=== PATIENT | male | born 1980 | race Caucasian/White ===

== ENCOUNTER 2016-09-12 11:28 | Emergency (ER) | payer BC ==
[2016-09-12 11:36] VITALS: BP 139/78
[2016-09-12] MEDS ORDERED: Take Home: Hydrocortisone/Neomycin/Polymyxin B Otic Susp 10 ML, 1 Btle Pac EARLF ONE (11:53)
--- NOTE | 2016-09-12 11:53 | EDM.PDOC ---
ED HPI GENERAL MEDICAL PROBLEM - General Chief Complaint: ENT Problem Stated Complaint: EAR DRAINAGE Time Seen by Provider: 09/12/16 11:30 Source of Information: Reports: Patient, RN, RN Notes Reviewed History Limitations: Reports: No Limitations - History of Present Illness INITIAL COMMENTS - FREE TEXT/NARRATIVE: Patient presents the emergency room at [facility] complaining of left-sided ear pain that started about a month ago. The patient states over the past week or so he has noticed a yellow purulent drainage from the left ear. The patient states the ear pain has progressively gotten worse. The patient states that he' s had mastoiditis in the past and has had surgery for this. The patient also states he had multiple tubes in the past as well. The patient states that he can smell a foul smell from the left ear. The patient states that the drainage has been continuous. Onset: Gradual Left Ear Pain Score (Numeric/FACES): 5 - Related Data Allergies Allergy/AdvReac Type Severity Reaction Status Date / Time seasonal Allergy Itching Uncoded 04/23/16 13:27 Home Meds: Home Meds Sertraline HCl [Sertraline HCl] 50 mg PO DAILY 04/23/16 [History] Amoxicillin/Potassium Clav [Amox Tr-K Clv 875-125 mg Tab] 1 each PO BID #18 tablet 09/12/16 [Rx] Past Medical History - Past Health History Medical/Surgical History: Denies Medical/Surgical History Psychiatric History: Reports: Depression - Past Surgical History Other HEENT Surgeries/Procedures: rhinoscopy mastoidectomy Social & Family History - Tobacco Use Smoking Status *Q: Unknown Ever Smoked Packs/Tins Daily: 1 Second Hand Smoke Exposure: No - Alcohol Use Days Per Week of Alcohol Use: 1 Number of Drinks Per Day: 6 Total Drinks Per Week: 6 - Recreational Drug Use Recreational Drug Use: Yes Drug Use in Last 12 Months: No Recreational Drug Type: Reports: Cocaine, Methamphetamine ED ROS ENT - Review of Systems Review Of Systems: See Below Constitutional: Denies: Fever, Chills HEENT: Reports: Ear Discharge, Ear Pain Respiratory: Denies: Shortness of Breath, Cough Cardiovascular: Denies: Chest Pain, Palpitations Skin: Reports: No Symptoms Neurological: Reports: No Symptoms ED EXAM, ENT - Physical Exam Exam: See Below Exam Limited By: No Limitations General Appearance: Alert, No Apparent Distress Ears: Canal Blood, Canal Discharge, Canal Material, TM Bulging, TM Perforation Nose: Normal Inspection, Normal Mucousa, No Blood Mouth/Throat: Normal Inspection, Normal Oropharynx, Normal Teeth Head: Atraumatic, Normocephalic Neck: Supple Respiratory/Chest: No Respiratory Distress, Lungs Clear, Normal Breath Sounds Cardiovascular: Regular Rate, Rhythm Neurological: Alert, Oriented Skin: Warm, Dry, Intact, Normal Color, No Rash Course - Vital Signs Last Recorded V/S: Last Vital Signs Temp 36.3 C 09/12/16 11:35 Pulse 79 09/12/16 11:35 Resp 16 09/12/16 11:35 BP 139/78 09/12/16 11:35 Pulse Ox 96 09/12/16 11:35 - Orders/Labs/Meds Orders: Active Orders 24 hr Category Date Time Status Amoxicillin/Clavulanate K [Take Home: Amox/Clavulanate Med 09/12/16 11:54 Once 875-12, 2 Tab Pac] 1 packet PO ONETIME ONE Meds: Medications Discontinued Medications Generic Name Dose Route Start Last Admin Trade Name Freq PRN Reason Stop Dose Admin Neomycin/Polymyxin/Hydrocortisone 1 packet 09/12/16 11:53 Take Home: Hydrocort/Neomycin/Polymy B, 1 Btl EARLF 09/12/16 11:54 ONETIME ONE Departure - Departure Time of Disposition: 11:51 Disposition: Home, Self-Care 01 Condition: good Clinical Impression: Otitis media Qualifiers: Otitis media type: suppurative Chronicity: acute Laterality: left Recurrence: recurrent Spontaneous tympanic membrane rupture: with spontaneous rupture Qualified Code(s): H66.015 - Acute suppurative otitis media with spontaneous rupture of ear drum, recurrent, left ear - Discharge Information Prescriptions: Amoxicillin/Potassium Clav [Amox Tr-K Clv 875-125 mg Tab] 1 each PO BID #18 tablet Instructions: Otitis Media With Effusion Forms: ED Department Discharge Additional Instructions: 1. Stay well hydrated and rest 2. No Q-tips or other foreign objects in either ear 3. Take medications for the full coarse 4. See your Primary YESI, you need an ENT referral - Problem List Review Problem List Initiated/Reviewed/Updated: Yes - My Orders Last 24 Hours: My Active Orders 09/12/16 11:54 Amoxicillin/Clavulanate K [Take Home: Amox/Clavulanate 875-12, 2 Tab Pac] 1 packet PO ONETIME ONE - Assessment/Plan Last 24 Hours: My Active Orders 09/12/16 11:54 Amoxicillin/Clavulanate K [Take Home: Amox/Clavulanate 875-12, 2 Tab Pac] 1 packet PO ONETIME ONE
[2016-09-12] MEDS ORDERED: Take Home: Amoxicillin/Clavulanate K 875-125 MG Tab, 2 Tab Pack PO ONE (11:54)
== END 2016-09-12 12:02 | disposition home or self-care (01) ==
LOC: VM.ED 11:28
DX: H66.015 Acute suppurative otitis media with spontaneous rupture of ear drum, recurrent, left ear (principal); F32.9 Major depressive disorder, single episode, unspecified; Z79.899 Other long term (current) drug therapy; Z91.09 Other allergy status, other than to drugs and biological substances
CPT/HCPCS: 99282; A9270

== ENCOUNTER 2018-05-02 08:01 | Emergency (ER) | payer BC ==
[2018-05-02 08:53] VITALS: BP 139/83
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
== END 2018-05-02 09:27 | disposition home or self-care (01) ==
LOC: VM.ED 08:01
DX: S81.811A Laceration without foreign body, right lower leg, initial encounter (principal); Z88.8 Allergy status to other drugs, medicaments and biological substances; V09.9XXA Pedestrian injured in unspecified transport accident, initial encounter
CPT/HCPCS: 12002; 73590-RT; 99283

== ENCOUNTER 2018-11-16 20:48 | Emergency (ER) | payer BC ==
--- NOTE | 2018-11-16 21:04 | EDM.PDOC ---
ED HPI GENERAL MEDICAL PROBLEM - General Chief Complaint: General Stated Complaint: MEDICAL CLEARANCE Time Seen by Provider: 11/16/18 20:58 Source of Information: Reports: Patient History Limitations: Reports: No Limitations - History of Present Illness INITIAL COMMENTS - FREE TEXT/NARRATIVE: Patient brought in for blood draw and medical clearance for incarceration. He denies any complaints. - Related Data Allergies Allergy/AdvReac Type Severity Reaction Status Date / Time seasonal Allergy Itching Uncoded 11/16/18 20:50 Home Meds: Home Meds Sertraline HCl 100 mg DAILY 05/02/18 [History] Past Medical History - Past Health History Medical/Surgical History: Denies Medical/Surgical History Psychiatric History: Reports: Depression - Past Surgical History Other HEENT Surgeries/Procedures: rhinoscopy mastoidectomy ED ROS GENERAL - Review of Systems Review Of Systems: See Below Constitutional: Reports: No Symptoms HEENT: Reports: No Symptoms Respiratory: Reports: No Symptoms Cardiovascular: Reports: No Symptoms Endocrine: Reports: No Symptoms GI/Abdominal: Reports: No Symptoms : Reports: No Symptoms Musculoskeletal: Reports: No Symptoms Skin: Reports: No Symptoms Neurological: Reports: No Symptoms Psychiatric: Reports: No Symptoms Hematologic/Lymphatic: Reports: No Symptoms Immunologic: Reports: No Symptoms ED EXAM, GENERAL - Physical Exam Exam: See Below Exam Limited By: No Limitations General Appearance: Alert, WD/WN, No Apparent Distress Eye Exam: Bilateral Eye: EOMI, Normal Inspection, PERRL Ears: Normal TMs Nose: Normal Inspection, Normal Mucosa, No Blood Throat/Mouth: Normal Inspection, Normal Lips, Normal Teeth, Normal Gums, Normal Oropharynx, Normal Voice, No Airway Compromise Head: Atraumatic, Normocephalic Neck: Normal Inspection, Supple, Non-Tender, Full Range of Motion Respiratory/Chest: No Respiratory Distress, Lungs Clear, Normal Breath Sounds, No Accessory Muscle Use, Chest Non-Tender Cardiovascular: Normal Peripheral Pulses, Regular Rate, Rhythm, No Edema, No Gallop, No JVD, No Murmur, No Rub Extremities: Normal Inspection, Normal Range of Motion, Non-Tender, Normal Capillary Refill, No Pedal Edema Neurological: Alert, Oriented, CN II-XII Intact, Normal Cognition, Normal Gait, Normal Reflexes, No Motor/Sensory Deficits Psychiatric: Normal Affect, Normal Mood Skin Exam: Warm, Dry, Intact, Normal Color, No Rash Lymphatic: No Adenopathy Course - Vital Signs Last Recorded V/S: Last Vital Signs Temp 37.2 C 11/16/18 20:58 Pulse 93 11/16/18 20:58 Resp 16 11/16/18 20:58 BP 152/97 H 11/16/18 20:58 Pulse Ox 98 11/16/18 20:58 Departure - Departure Time of Disposition: 21:07 Disposition: Home, Self-Care 01 Condition: Good Clinical Impression: Intoxication - Discharge Information Forms: ED Department Discharge Additional Instructions: Patient appears to be medically stable for incarceration at this time. Physical conditions can change without warning. Close observation is advised and return to the ED is suggested with any changes. - Problem List & Annotations (1) Intoxication SNOMED Code(s): 91801768 Code(s): TVQ8705 - Status: Acute Priority: Medium - Problem List Review Problem List Initiated/Reviewed/Updated: Yes - Assessment/Plan Plan: Patient appears to be medically stable for incarceration at this time. Physical conditions can change without warning. Close observation is advised and return to the ED is suggested with any changes.
[2018-11-16 21:18] VITALS: BP 152/97; PULSE 93
== END 2018-11-16 21:08 | disposition home or self-care (01) ==
LOC: VM.ED 20:48
DX: F10.129 Alcohol abuse with intoxication, unspecified (principal); F32.9 Major depressive disorder, single episode, unspecified; Z91.09 Other allergy status, other than to drugs and biological substances; Z79.899 Other long term (current) drug therapy
CPT/HCPCS: 99282

== ENCOUNTER 2024-03-18 08:09 | Emergency (ER) | payer BC, OTHER ==
[2024-03-18 08:45] VITALS: BP 129/94; PULSE 70
[2024-03-18] MEDS: Dexamethasone/Neomycin/Polymyxin B Ophth Susp 5 ML Bottle EYELF SCH (08:59)
[2024-03-18] MEDS: Take Home: Amoxicillin/Clavulanate K 875-125 MG Tab, 2 Tab Pack PO ONE (08:59)
== END 2024-03-18 09:13 | disposition home or self-care (01) ==
LOC: VM.ED 08:09
DX: H66.015 Acute suppurative otitis media with spontaneous rupture of ear drum, recurrent, left ear (principal); Z79.899 Other long term (current) drug therapy; Z91.09 Other allergy status, other than to drugs and biological substances
CPT/HCPCS: 99283; A9270